=== PATIENT | male | born 2000 | race Caucasian/White ===

== ENCOUNTER 2019-11-15 14:30 | Emergency (ER) | payer SELFPAY ==
[2019-11-15 14:48] VITALS: BP 151/85; PULSE 87; RESP 15; TEMP 36.8; O2SAT 98; BMI 43.7
--- NOTE | 2019-11-15 14:51 | DI.RAD.S_ITS ---
PROCEDURE: XR FINGER LT MIN 2V INDICATIONS: Pt jammed finger with swelling and pain TECHNIQUE: AP hand, 2 views of the small finger(s) acquired. COMPARISON: None. FINDINGS: Bones: Oblique, displaced fracture of the distal shaft of the proximal phalanx of the fifth finger extending to the lateral edge of the fifth PIP joint. No dislocations. No suspicious bony lesions. Soft tissues: No suspicious soft tissue calcifications. IMPRESSION: Fifth finger proximal phalanx fracture as described above. Dictated by: Alexis Barrera M.D. on 11/15/2019 at 14:22 Approved by: Alexis Barrera M.D. on 11/15/2019 at 14:23
[2019-11-15] MEDS: ACETAMINOPHEN 325 MG TABLET 975 MG PO (15:34)
[2019-11-15] MEDS: IBUPROFEN 400 MG TABLET 800 MG PO (15:34)
[2019-11-15 16:21] VITALS: BP 139/72; PULSE 79; RESP 18; O2SAT 99
--- NOTE | 2019-11-15 18:52 | ED_ITS ---
HPI - Extremity Injury (Upper) <BE Hung - Last Filed: 11/15/19 18:56> General Chief Complaint: Extremity Injury, Upper Stated Complaint: Potential left pinky fracture Time Seen by Provider: 11/15/19 15:09 Source: patient Mode of arrival: Family Vehicle Limitations: no limitations History of Present Illness HPI narrative: The patient is a 19-year-old male current smoker who denies pertinent medical history presents with a chief complaint of a left finger pain. He states he jammed his left finger on a football while playing it yesterday. Now he complains of swelling and decreased range of motion. He has taken marijuana for the pain. He denies any previous injuries to that hand. He is right-hand dominant Related Data Allergies Allergy/AdvReac Type Severity Reaction Status Date / Time No Known Drug Allergies Allergy Verified 11/15/19 14:48 Review of Systems <BE Hung - Last Filed: 11/15/19 18:56> Review of Systems Narrative: GENERAL: Denies chills, fatigue, malaise, fever, sweats. HEENT: Denies sinus pain, ear pain, sore throat, difficulty swallowing, dizziness. RESPIRATORY: Denies dyspnea, cough, wheezing, hemoptysis, sputum. CARDIOVASCULAR: Denies chest pain, palpitations, orthopnea, edema, GASTROINTESTINAL: Denies nausea, vomiting, abdominal pain, diarrhea, constipation, melena. : Denies dysuria, frequency, incontinence, hematuria, urinary retention. MUSCULOSKELETAL: See HPI SKIN: Denies rash, skin lesions, or other NEUROLOGIC: Denies weakness, headache, numbness, change in speech, confusion, seizures, incoordination. PSYCHIATRIC: No concerning psychosocial issues. 12 point review of systems is negative except for those stated above Patient History <BE Hung - Last Filed: 11/15/19 18:56> alcohol intake frequency: a few times a week Substance Use Type: marijuana Exam <BE Hung Last Filed: 11/15/19 18:56> Narrative Exam Narrative: GENERAL: Obese male in no acute distress HEAD: Atraumatic. Normocephalic. No temporal or scalp tenderness. EYES: Pupils equal round and reactive. Extraocular motions intact. No scleral icterus. No injection or drainage. ENT: Nose without bleeding, purulent drainage or septal hematoma.. Airway patent. NECK: Trachea midline. No JVD or lymphadenopathy. Supple, nontender, no meningeal signs. CARDIOVASCULAR: Regular rate and rhyth RESPIRATORY: No cough. No increased respiratory effort. No accessory muscle use EXTREMITIES: Swelling noted over left 5th digit. Decreased flexion and extension, though is able to flex and extend against resistance. Cap refill less than 2 seconds left 5th digit positive radial pulse. BACK: Nontender without deformity or crepitance. No flank tenderness. NEURO: AOx3. SKIN: See extremity exam. Ecchymosis noted left 5th digit. Initial Vital Signs Initial Vital Signs: Vital Signs Temperature 98.2 F 11/15/19 14:48 Pulse Rate 87 11/15/19 14:48 Respiratory Rate 15 11/15/19 14:48 Blood Pressure 151/85 H 11/15/19 14:48 Pulse Oximetry 98 11/15/19 14:48 <Arnold Matute MD - Last Filed: 11/16/19 19:46> Initial Vital Signs Initial Vital Signs: Vital Signs Temperature 98.2 F 11/15/19 14:48 Pulse Rate 87 11/15/19 14:48 Respiratory Rate 15 11/15/19 14:48 Blood Pressure 151/85 H 11/15/19 14:48 Pulse Oximetry 98 11/15/19 14:48 Procedures <BE Hung - Last Filed: 11/15/19 18:56> Orthopedic Splinting/Casting Injury #1: Side: left Upper Extremity Injury Location: finger Upper Extremity Immobilizer: finger (other) and Reji wrap Post splinting neuro exam: intact Post splinting vascular exam: intact Placed by: Nursing Course <BE Hung - Last Filed: 11/15/19 18:56> Orders Ordered: Discontinued Medications Acetaminophen (Tylenol) 975 mg PO NOW ONE Stop: 11/15/19 15:30 Last Admin: 11/15/19 15:34 Dose: 975 mg Documented by: MAHSA Ibuprofen (Advil) 800 mg PO NOW ONE Stop: 11/15/19 15:30 Last Admin: 11/15/19 15:34 Dose: 800 mg Documented by: MAHSA Vital Signs Vital signs: Vital Signs - 8 hr 11/15/19 14:48 11/15/19 16:21 Temperature 98.2 F Pulse Rate 87 79 Respiratory Rate 15 18 Blood Pressure 151/85 H 139/72 Pulse Oximetry 98 99 <Arnold Matute MD - Last Filed: 11/16/19 19:46> Orders Ordered: Discontinued Medications Acetaminophen (Tylenol) 975 mg PO NOW ONE Stop: 11/15/19 15:30 Last Admin: 11/15/19 15:34 Dose: 975 mg Documented by: MAHSA Ibuprofen (Advil) 800 mg PO NOW ONE Stop: 11/15/19 15:30 Last Admin: 11/15/19 15:34 Dose: 800 mg Documented by: MAHSA Vital Signs Vital signs: Vital Signs - 8 hr 11/15/19 14:48 11/15/19 16:21 Temperature 98.2 F Pulse Rate 87 79 Respiratory Rate 15 18 Blood Pressure 151/85 H 139/72 Pulse Oximetry 98 99 MDM - Extremity Injury (Upper) <BE Hung - Last Filed: 11/15/19 18:56> Imaging Data Extremity x-ray #1: Radiologist's Impression: [address] [place] [id number] XRay Report Signed Patient: Austin Villeda RMR#: [id number] : 2000Acct:[id number] Age/Sex: 19 MDate of Service: 11/15/19 Loc: ED Accession Number: [id number] Procedure: XR finger LT min 2V Ordering Provider: Arnold Matute MD PROCEDURE: XR FINGER LT MIN 2V INDICATIONS: Pt jammed finger with swelling and pain TECHNIQUE: AP hand, 2 views of the small finger(s) acquired. COMPARISON: None. FINDINGS: Bones: Oblique, displaced fracture of the distal shaft of the proximal phalanx of the fifth finger extending to the lateral edge of the fifth PIP joint. No dislocations. No suspicious bony lesions. Soft tissues: No suspicious soft tissue calcifications. IMPRESSION: Fifth finger proximal phalanx fracture as described above. Dictated by: Alexis Barrera M.D. on 11/15/2019 at 14:22 Approved by: Alexis Barrera M.D. on 11/15/2019 at 14:23 [facility] Narrative Medical decision making narrative: The patient is a 19-year-old male who presents with a chief complaint of left 5th digit pain. He has a fracture on x- ray. He is neurovascularly intact throughout stay in the emergency department. He is placed in a splint as per procedural note. I discussed at length rest ice compression elevation as well as [id number] pain medications as needed and able. The patient denies pain in the emergency department and states that Tylenol/Motrin to take care for pain. I encouraged follow-up with primary care provider, coming back to the emergency department for any acute concerns such as circulation concerns. Patient has no questions or concerns upon discharge and states understanding of return precautions as well as follow-up care. Discharge Plan Departure Patient Disposition: Home Clinical Impression: Finger fracture Qualifiers: Encounter type: initial encounter Finger: little finger Fracture type: closed Phalanx: proximal Fracture alignment: displaced Laterality: left Qualified Code(s): S62.617A - Displaced fracture of proximal phalanx of left little finger, initial encounter for closed fracture Discharge Date/Time: 11/15/19 16:51 Instructions: DI for Finger Fracture, How To Perform RICE (Rest, Ice, Compress, Elevate), How to Take Care of Your Splint Activity Restrictions/Additional Instructions: Thank you for trusting us with your care today As I discussed, you have a fractured 5th finger. We have splinted it for you. Please use rest ice compression elevation as well as [id number] pain medications as needed and able. Please back to emergency department for any acute concerns. Please follow-up with primary care provider. I have given you contact information to your old PCP as well as the [facility] human resources analyst, who can help you identify new one. I also given contact information to [facility] Please come back to emergency department for any acute concerns Referrals: [facility] [Provider Group] [facility] [Outside] Yamil Kohler MD [Family Provider] - Stand Alone Forms: Work Release Note
== END 2019-11-15 16:51 | disposition home or self-care (01) ==
PROVIDERS: Emergency Provider Nurse Practitioner Family; Family Provider Family Medicine
DX: S62.617A Displaced fracture of proximal phalanx of left little finger, initial encounter for closed fracture (principal); W21.01XA Struck by football, initial encounter
CPT/HCPCS: 29130; 73140; 99283

== ENCOUNTER 2020-05-10 22:39 | Emergency (ER) | payer OTHER, SELFPAY ==
[2020-05-10 22:45] VITALS: BP 146/78; PULSE 102; RESP 16; TEMP 37.4; O2SAT 98; BMI 42.3
--- NOTE | 2020-05-10 23:47 | ED_ITS ---
HPI - General Adult General Chief complaint: Upper Respiratory Symptoms Stated complaint: thinks strep throat Time Seen by Provider: 05/10/20 22:45 Source: patient Mode of arrival: Ambulatory Limitations: no limitations History of Present Illness HPI narrative: Patient is a 19-year-old male who was recently exposed to an individual who has strep throat who is here for evaluation of approximately 24- 36 hours of a sore throat. Patient states that he thinks he has strep. Related Data Allergies Allergy/AdvReac Type Severity Reaction Status Date / Time No Known Drug Allergies Allergy Verified 11/15/19 14:48 Review of Systems Constitutional Constitutional: Denies fever(s) ENT Ears, Nose, Mouth, and Throat: Reports sore throat Cardiovascular Cardiovascular: Denies chest pain Respiratory Respiratory: Denies cough Integumentary/Breasts Skin/Breast: Denies lesions and Denies rash Hematologic/Lymphatic Hematologic/Lymphatic: Denies easy bleeding and Denies easy bruising Patient History Medical History Patient denies medical problems alcohol intake frequency: a few times a week Substance Use Type: marijuana Exam Initial Vital Signs Initial Vital Signs: Vital Signs Temperature 99.3 F 05/10/20 22:45 Pulse Rate 102 H 05/10/20 22:45 Respiratory Rate 16 05/10/20 22:45 Blood Pressure 146/78 H 05/10/20 22:45 Pulse Oximetry 98 05/10/20 22:45 Const General: cooperative and comfortable HENMT Mouth: oral mucosae normal Throat: posterior oropharynx abnormal erythema and exudates Resp Effort & Inspection: normal respiratory effort Skin Lesions: no lesions Rashes: no rashes Neuro General: patient alert, patient awake and patient oriented x3 Course Orders Ordered: Discontinued Medications Penicillin G Benzathine (Penicillin G Benzathine 1,200,000 Unit/2 Ml Syringe) 1,200,000 unit IM NOW ONE Stop: 05/10/20 23:48 Last Admin: 05/10/20 23:54 Dose: 1,200,000 unit Documented by: MURPHY Vital Signs Vital signs: Vital Signs - 8 hr 05/10/20 22:45 Temperature 99.3 F Pulse Rate 102 H Respiratory Rate 16 Blood Pressure 146/78 H Pulse Oximetry 98 Medical Decision Making Lab Data Lab results reviewed: Yes I reviewed the patient's lab results. Labs: Point of Care Testing Rapid Strep A Positive Point of care testing: Point of Care Testing Rapid Strep A Positive MDM Narrative Medical decision making narrative: Rapid strep is positive. Discussed treatment options to include IM Bicillin versus oral antibiotics and the patient opted for a shot. There are no signs of peritonsillar/retropharyngeal abscess. Patient was given return precautions. He expressed understanding and agreement. Discharge Plan Departure Patient Disposition: Home Clinical Impression: Acute streptococcal pharyngitis Instructions: DI for Strep Throat Activity Restrictions/Additional Instructions: You can take Tylenol for any fevers. Be sure to increase your fluid intake return to the emergency department for any new or worsening symptoms
[2020-05-10] MEDS: PENICILLIN G BENZATHINE 1,200,000 UNIT/2 ML SYRINGE 1200000 UNIT IM (23:54)
== END 2020-05-11 00:02 | disposition home or self-care (01) ==
PROVIDERS: Emergency Provider Emergency Medicine; Family Provider Family Medicine
DX: J02.0 Streptococcal pharyngitis (principal)
CPT/HCPCS: 87880; 96372; 99281; 99283; J0561

== ENCOUNTER 2020-09-11 12:28 | Emergency (ER) | payer OTHER, SELFPAY ==
[2020-09-11 12:41] VITALS: BP 144/83; PULSE 85; RESP 18; TEMP 37.2; O2SAT 98; BMI 38.9
--- NOTE | 2020-09-11 14:04 | ED_ITS ---
HPI - Dental/Oral General Chief complaint: Dental/Oral Stated complaint: tooth pain Time Seen by Provider: 09/11/20 14:03 Source: patient Mode of arrival: Ambulatory Limitations: no limitations History of Present Illness HPI Narrative: This is a 20-year-old male comes with the complaint of pain in his number #14. Patient states that he cracked his tooth a while ago and states that he did really have any pain. Today he was eating sunflower seeds when he had sudden pain at the tooth itself which was significant. He has had some improvement after some Orajel locally. Patient has not appreciated any issues until today. He is not appreciate any swelling or new skin changes. No drainage. Patient states he has otherwise been healthy. He has not been following regularly with a dentist since he was about 9. Patient denies any allergies to medications. Does not take any medications regularly. He is accompanied by family. Related Data Previous Rx's Medication Instructions Recorded meloxicam [Mobic] 7.5 mg PO BID #20 tab 09/11/20 Allergies Allergy/AdvReac Type Severity Reaction Status Date / Time No Known Drug Allergies Allergy Verified 11/15/19 14:48 Review of Systems Review of Systems ROS Unobtainable: All systems reviewed & are unremarkable except as noted in HPI and below Patient History Medical History Patient denies medical problems alcohol intake frequency: a few times a week Substance Use Type: marijuana Exam Narrative Exam Narrative: GEN: well nourished, well appearing male, alert and oriented x 3, patient appears to be in mild distress. HEENT: Atraumatic, pupils are equal round reactive to light, extraocular movements are intact, nares are clear. Throat is clear without any exudates, erythema, tonsillar enlargement or uvular deviation. Patient has fracture of the 14. Tooth there is some exposure of the soft tissue. There is no erythema, drainage or other skin changes appreciated. No swelling of the face or soft tissue of the cheek. No purulent drainage. HEART: Regular rate and rhythm without murmur, clicks, rubs. LUNGS:Lungs clear to auscultation, no wheezes, rales, crackles, chest moves symmetrically ABD:bowel sounds normal, soft, non-tender, no guarding, rebound, rigidity, no masses noted, no hepatosplenomegaly MSCL: full range of motion NEURO:CN 2-12 intact, sensation normal SKIN: No rash, skin changes appreciated. Initial Vital Signs Initial Vital Signs: Vital Signs Temperature 98.9 F 09/11/20 12:41 Pulse Rate 85 09/11/20 12:41 Respiratory Rate 18 09/11/20 12:41 Blood Pressure 144/83 H 09/11/20 12:41 Pulse Oximetry 98 09/11/20 12:41 Course Orders Ordered: Discontinued Medications Ketorolac Tromethamine (Ketorolac 30 Mg/Ml Vial) 60 mg IM NOW ONE Stop: 09/11/20 14:35 Last Admin: 09/11/20 14:44 Dose: 60 mg Documented by: DECLAN Vital Signs Vital signs: Vital Signs - 8 hr 09/11/20 12:41 Temperature 98.9 F Pulse Rate 85 Respiratory Rate 18 Blood Pressure 144/83 H Pulse Oximetry 98 Discharge Plan Departure Patient Disposition: Home Clinical Impression: Fracture of tooth Instructions: Tooth Fracture Activity Restrictions/Additional Instructions: Followup with a dentist for recheck. One option is [facility] dental clinic if you cannot find a dentist. Take pain medication as prescribed, may take 1 tablet every 12 hours. You may also take Tylenol up to a 1000 mg every 8 hours with this medication. Prescription to [facility] in [place]. Please return for fevers, new or worsening pain, swelling of the gums or skin, swelling, redness of the face, swelling of the airway, tongue or any purulent drainage or other new or concerning symptoms. Prescriptions: New meloxicam [Mobic] 7.5 mg tablet 7.5 mg PO BID Qty: 20 RF: 0
[2020-09-11] MEDS: KETOROLAC 30 MG/ML VIAL 60 MG IM (14:44)
== END 2020-09-11 14:54 | disposition home or self-care (01) ==
PROVIDERS: Emergency Provider Emergency Medicine; Family Provider Family Medicine
DX: S02.5XXA Fracture of tooth (traumatic), initial encounter for closed fracture (principal)
CPT/HCPCS: 96372; 99283; J1885

== ENCOUNTER 2021-10-04 03:26 | Emergency (ER) | payer SELFPAY ==
[2021-10-04 03:31] VITALS: BP 150/83; PULSE 103; RESP 18; TEMP 36.6; O2SAT 96
--- NOTE | 2021-10-04 03:34 | DI.RAD.S_ITS ---
PROCEDURE: XR KNEE LT 3V INDICATIONS: pain,slight swelling,not acute TECHNIQUE: 3 views of the knee were acquired. COMPARISON: None. FINDINGS: Bones: No fractures or dislocations. No suspicious bony lesions. Soft tissues: No joint effusion. No suspicious soft tissue calcifications. IMPRESSION: No fracture. No osseous lesion. If symptoms and/or clinical suspicion for pathology persists, further assessment with repeat radiographs (7-10 days) or advanced imaging (e.g. CT, MRI or bone scan) should be considered. Dictated by: Radha Butler MD, PhD on 10/04/2021 at 9:12 Approved by: Radha Butler MD, PhD on 10/04/2021 at 9:12
--- NOTE | 2021-10-04 03:49 | ED.EXTPRO ---
HPI - Extremity Problem General Chief complaint: Extremity Problem,Nontraumatic Stated complaint: left knee pain Time Seen by Provider: 10/04/21 03:31 Source: patient Mode of arrival: Ambulatory History of Present Illness HPI Narrative: 21-year-old male nonsmoker with history of a prior knee injury presents with his father and a chief complaint of increasing pain in his left knee over the past few days. He states that a few days ago he was walking and he thinks he twisted it and he has had increasing pain since then. His pain is worse when he bends it. He denies any numbness, tingling or weakness. He denies any abnormal proprioception. He has no discomfort in his hip or ankle. Again, he denies any traumatic injury and did not fall. He has had no fever or chills. He states he had an injury years ago but did not have a properly treated and is concerned that perhaps he could have reaggravated it. Related Data Previous Rx's Medication Instructions Recorded meloxicam 7.5 mg tablet (Mobic) 7.5 mg PO BID #20 tab 09/11/20 ketorolac 10 mg tablet 10 mg PO Q6H PRN #14 tab 10/04/21 Allergies Allergy/AdvReac Type Severity Reaction Status Date / Time No Known Drug Allergies Allergy Verified 11/15/19 14:48 Review of Systems Review of Systems Narrative: GENERAL: Denies chills, fatigue, malaise, fever, sweats. HEENT: Denies sinus pain, ear pain, sore throat, difficulty swallowing, dizziness. RESPIRATORY: Denies dyspnea, cough, wheezing, hemoptysis, sputum. CARDIOVASCULAR: Denies chest pain, palpitations, orthopnea, edema, GASTROINTESTINAL: Denies nausea, vomiting, abdominal pain, diarrhea, constipation, melena. : Denies dysuria, frequency, incontinence, hematuria, urinary retention. MUSCULOSKELETAL: See HPI SKIN: Denies rash, skin lesions, or other NEUROLOGIC: Denies weakness, headache, numbness, change in speech, confusion, seizures, incoordination. PSYCHIATRIC: No concerning psychosocial issues. 12 point review of systems is negative except for those stated above Patient History Medical History Patient denies medical problems alcohol intake frequency: a few times a week Substance Use Type: marijuana Exam Narrative Exam Narrative: GEN: AOx3 and in mild distress EYES: Pupils are equal, round, and reactive to light and accommodation. Extraoccular muscles are intact bilaterally. There is no subconjunctival hemorrhage or exudate. CHEST: Lungs are clear to auscultation bilaterally and free of wheezes, rales, or rhonchi. Heart rate is regular rhythm, there are no murmurs, clicks, rubs, or gallops. There is no chest wall tenderness. ABD: Abdomen is soft and nontender. There is no guarding or rebound. Bowel sounds are normal in all 4 quadrants. There is no mass or organomegaly. EXT: Full, painless range of motion of left knee without obvious swelling, erythema or warmth. There is no reproducible joint line tenderness and no obvious ligamentous instability. SKIN: Warm, pink, and dry. No erythema or rash Initial Vital Signs Initial Vital Signs: Vital Signs Temperature 98 F 10/04/21 03:31 Pulse Rate 103 H 10/04/21 03:31 Respiratory Rate 18 10/04/21 03:31 Blood Pressure 150/83 H 10/04/21 03:31 Pulse Oximetry 96 10/04/21 03:31 Course Orders Ordered: ED Orders 10/04/21 03:34 XR knee LT 3V Stat Vital Signs Vital signs: Vital Signs - 8 hr 10/04/21 03:31 Temperature 98 F Pulse Rate 103 H Respiratory Rate 18 Blood Pressure 150/83 H Pulse Oximetry 96 Discharge Plan Departure Patient Disposition: Home Clinical Impression: Left knee sprain Instructions: DI for Knee Sprain Activity Restrictions/Additional Instructions: *You have been diagnosed with [Acute Left Knee Sprain ] your history and physical exam are reassuring and x-ray demonstrates no obvious fracture or dislocation. *What to do: *Please continue to take your regular medications as directed. [x ] New medication prescriptions sent to your pharmacy: [ [facility]] [ ] New medication written as a paper prescription *Please follow up with your primary care doctor in 2-3 days, call for an appointment. Let them know you were seen in the Emergency Department and that we ask that you be seen in follow up. We will electronically transmit a record of today's note if your PCP is in our system *Return to Emergency Department if you should have any new, worsening or concerning symptoms, such as [worsening pain, significant swelling, cold extremities, numbness, tingling, weakness or other bothersome symptoms Radiographic study has been interpreted by an emergency physician. The official diagnosis by radiology will be performed within the next 24 hours and should there be any change in outcome we will notify you of how to proceed. Prescriptions: New ketorolac 10 mg tablet 10 mg PO Q6H PRN (Reason: pain) Qty: 14 0RF No Action meloxicam [Mobic] 7.5 mg tablet 7.5 mg PO BID Qty: 20 0RF
[2021-10-04] MEDS: IBUPROFEN 400 MG TABLET 800 MG PO (04:47)
== END 2021-10-04 04:53 | disposition home or self-care (01) ==
PROVIDERS: Emergency Provider Emergency Medicine; Family Provider Family Medicine
DX: S83.92XA Sprain of unspecified site of left knee, initial encounter (principal)
CPT/HCPCS: 73562; 99283

== ENCOUNTER 2024-06-10 05:16 | Emergency (ER) | payer SELFPAY ==
[2024-06-10 05:22] VITALS: BP 125/73; PULSE 117; RESP 18; TEMP 36.9; O2SAT 97; BMI 41.3
[2024-06-10 06:28] LABS: Add Manual Diff / Slide Review NO; Basophils Absolute Auto 0 /uL (0-100); Basophils Percent Auto 0.1 % (0-2); Eosinophils Absolute Auto 100 /uL (0-450); Eosinophils Percent Auto 0.3 % (2-4); Hematocrit 50.2 % (41-53); Hemoglobin 16.7 g/dL (13.5-17.5); Lymphocytes Absolute Auto 400 /uL (1100-4500); Lymphocytes Percent Auto 1.8 % (25-40); Mean Corpuscular HGB Conc 33.3 % (30-36); Mean Corpuscular Hemoglobin 29.5 PG (26-34); Mean Corpuscular Volume 88.4 fL (80-100); Monocytes Absolute Auto 1200 /uL (0-900); Monocytes Percent Auto 5.1 % (3-14); Neutrophils Absolute Auto 21700 /uL (1500-7000); Neutrophils Percent Auto 92.7 % (50-75); Platelet Count 435 X10^3/uL (150-400); Red Blood Cell Count 5.68 X10^6/uL (4.5-5.9); Red Cell Distribution Width 13.4 % (11.6-14.8); White Blood Cell Count 23.4 X10^3/uL (4.5-11.0)
[2024-06-10 06:44] LABS: Alanine Aminotransferase 83 IU/L (<50); Albumin 5.3 g/dL (3.5-5.0); Albumin Globulin Ratio 1.2 (1.0-2.8); Alkaline Phosphatase 78 U/L (38-126); Aspartate Aminotransferase 42 IU/L (17-59); BUN Creatinine Ratio 21.6 (6-22); Bilirubin Total 1.5 mg/dL (0.2-1.3); Blood Urea Nitrogen 19 mg/dL (9-20); Calcium 9.6 mg/dL (8.4-10.2); Carbon Dioxide 19 mmol/L (22-32); Chloride 104 mmol/L (98-107); Estimated Glomerular Filt Rate > 60 mL/min (>60); Globulin 4.6 g/dL (1.7-4.1); Glucose 183 mg/dL (70-100); HEMOLYSIS < 15 (0-50); Potassium 4.6 mmol/L (3.4-5.1); Sodium 139 mmol/L (137-145); Total Protein 9.9 g/dL (6.3-8.2)
--- NOTE | 2024-06-10 06:46 | ED.GENADULT ---
HPI - General Adult <Luis Alberto Mills MD - Last Filed: 06/10/24 11:12> General Chief complaint: Abdominal Pain Stated complaint: food poisoning Time Seen by Provider: 06/10/24 05:50 Source: patient Mode of arrival: Ambulatory History of Present Illness HPI narrative: 23-year-old male with multiple episodes nonbloody emesis and loose stools since yesterday, perhaps 10 loose stools and perhaps 10 episodes of emesis, with crampy abdominal pain. No fever. Denies recent cough or shortness of breath. Denies painful urination or frequency of urination. No recent antibiotic exposure. He has not been traveling or camping. He has not having any close contacts to persons with similar GI symptoms. Related Data Previous Rx's Medication Instructions Recorded ondansetron 4 mg disintegrating 4 mg PO Q8H PRN nausea and 06/10/24 tablet vomiting #10 tabs Allergies Allergy/AdvReac Type Severity Reaction Status Date / Time No Known Drug Allergies Allergy Verified 11/15/19 14:48 Patient History <Luis Alberto Mills MD - Last Filed: 06/10/24 11:12> Medical History Patient denies medical problems Social History Smoking Status: Never smoker Smoking Status: Never smoker alcohol intake frequency: a few times a week Exam <Luis Alberto Mills MD - Last Filed: 06/10/24 11:12> Narrative Exam Narrative: GENERAL: Well-developed patient, in mild distress. HEAD: Atraumatic. Normocephalic. EYES: Pupils equal round and reactive. Extraocular motions intact. No scleral icterus. No injection or drainage. ENT: Nose without bleeding, purulent drainage. Throat without erythema, tonsillar hypertrophy or exudate. Airway patent. NECK: Trachea midline. Non tender CARDIOVASCULAR: Regular rate and rhythm without murmurs, gallops, or rubs. RESPIRATORY: Clear to auscultation. Breath sounds equal bilaterally. No wheezes, rales, or rhonchi. GASTROINTESTINAL: Abdomen soft, non-tender, nondistended. EXTREMITIES: No edema or joint tenderness. BACK: Nontender without deformity or crepitance. No flank tenderness. NEURO: AOx3. Motor functions grossly nonfocal SKIN: No rash or erythema of visible areas Initial Vital Signs Initial Vital Signs: Vital Signs Temperature 98.4 F 06/10/24 05:22 Pulse Rate 117 H 06/10/24 05:22 Respiratory Rate 18 06/10/24 05:22 Blood Pressure 125/73 06/10/24 05:22 Pulse Oximetry 97 06/10/24 05:22 Oxygen Delivery Method Room Air 06/10/24 05:22 <Tavia Troy DO - Last Filed: 06/10/24 13:46> Initial Vital Signs Initial Vital Signs: Vital Signs Temperature 98.4 F 06/10/24 05:22 Pulse Rate 117 H 06/10/24 05:22 Respiratory Rate 18 06/10/24 05:22 Blood Pressure 125/73 06/10/24 05:22 Pulse Oximetry 97 06/10/24 05:22 Oxygen Delivery Method Room Air 06/10/24 05:22 Course <Luis Alberto Mills MD - Last Filed: 06/10/24 11:12> Orders Ordered: ED Orders 06/10/24 06:18 CBC Auto Diff [Complete Blood Count AUTO DIFF] Stat CMP [Comprehensive Metabolic Panel] Stat Lactate (Lactic Acid) Stat Lipase Stat 06/10/24 07:16 Blood Culture Stat 06/10/24 07:33 CT abdomen pelvis w con Stat Discontinued Medications Sodium Chloride (Normal Saline 0.9%) 1,000 mls @ 1,000 mls/hr IV BOLUS ONE Stop: 06/10/24 07:56 Last Infusion: 06/10/24 08:11 Dose: Infused Documented By: Admin: 06/10/24 07:05 Dose: 1,000 mls/hr Documented By: CHEL Ondansetron HCl (Ondansetron 4 Mg/2 Ml Inj) 4 mg IV NOW ONE Stop: 06/10/24 06:58 Last Admin: 06/10/24 07:05 Dose: 4 mg Documented By: CHEL Vital Signs Vital signs: Vital Signs - 8 hr 06/10/24 07:44 06/10/24 08:05 06/10/24 08:13 Temperature Pulse Rate 101 H 93 H Respiratory Rate 18 Blood Pressure 143/81 H 131/77 Pulse Oximetry 98 96 Oxygen Delivery Method Room Air 06/10/24 08:13 06/10/24 08:45 Temperature 98.6 F Pulse Rate 102 H 100 H Respiratory Rate 20 Blood Pressure 131/77 Pulse Oximetry 97 98 Oxygen Delivery Method Room Air <Tavia Troy DO - Last Filed: 06/10/24 13:46> Orders Ordered: ED Orders 06/10/24 06:18 CBC Auto Diff [Complete Blood Count AUTO DIFF] Stat CMP [Comprehensive Metabolic Panel] Stat Lactate (Lactic Acid) Stat Lipase Stat 06/10/24 07:16 Blood Culture Stat 06/10/24 07:33 CT abdomen pelvis w con Stat Discontinued Medications Sodium Chloride (Normal Saline 0.9%) 1,000 mls @ 1,000 mls/hr IV BOLUS ONE Stop: 06/10/24 07:56 Last Infusion: 06/10/24 08:11 Dose: Infused Documented By: Admin: 06/10/24 07:05 Dose: 1,000 mls/hr Documented By: CHEL Ondansetron HCl (Ondansetron 4 Mg/2 Ml Inj) 4 mg IV NOW ONE Stop: 06/10/24 06:58 Last Admin: 06/10/24 07:05 Dose: 4 mg Documented By: CHEL Vital Signs Vital signs: Vital Signs - 8 hr 06/10/24 07:44 06/10/24 08:05 06/10/24 08:13 Temperature Pulse Rate 101 H 93 H Respiratory Rate 18 Blood Pressure 143/81 H 131/77 Pulse Oximetry 98 96 Oxygen Delivery Method Room Air 06/10/24 08:13 06/10/24 08:45 Temperature 98.6 F Pulse Rate 102 H 100 H Respiratory Rate 20 Blood Pressure 131/77 Pulse Oximetry 97 98 Oxygen Delivery Method Room Air Medical Decision Making <Luis Alberto Mills MD - Last Filed: 06/10/24 11:12> Lab Data Lab results reviewed: Yes I reviewed the patient's lab results. Lab results narrative: White blood cell count 98619, hemoglobin 16.7, platelets [id number]. Serum CO2 19, BUN creatinine normal. Electrolytes unremarkable. Glucose 183. Slight ALT and T bili elevation, otherwise normal. Lipase normal. 06/10/24 06:18 06/10/24 06:18 Labs: Lab Results 06/10/24 Range/Units 06:18 WBC 23.4 H (4.5-11.0) X10^3/uL RBC 5.68 (4.5-5.9) X10^6/uL Hgb 16.7 (13.5-17.5) g/dL Hct 50.2 (41-53) % MCV 88.4 (80-100) fL MCH 29.5 (26-34) PG MCHC 33.3 (30-36) % RDW 13.4 (11.6-14.8) % Plt Count 435 H (150-400) X10^3/uL Neut % (Auto) 92.7 H (50-75) % Lymph % (Auto) 1.8 L (25-40) % [place] % (Auto) 5.1 (3-14) % Eos % (Auto) 0.3 L (2-4) % Baso % (Auto) 0.1 (0-2) % Neut # (Auto) 22815 H (4452-4619) /uL Lymph # (Auto) 400 L (1143-3242) /uL [place] # (Auto) 1200 H (0-900) /uL Eos # (Auto) 100 (0-450) /uL Baso # (Auto) 0 (0-100) /uL Sodium 139 (137-145) mmol/L Potassium 4.6 (3.4-5.1) mmol/L Chloride 104 (98-107) mmol/L Carbon Dioxide 19 L (22-32) mmol/L BUN 19 (9-20) mg/dL Creatinine 0.88 (0.66-1.25) mg/dL Estimated GFR > 60 (>60) mL/min BUN/Creatinine Ratio 21.6 (6-22) Glucose 183 H (70-100) mg/dL Lactate 2.0 (0.7-2.1) mmol/L Calcium 9.6 (8.4-10.2) mg/dL Total Bilirubin 1.5 H (0.2-1.3) mg/dL AST 42 (17-59) IU/L ALT 83 H (<50) IU/L Alkaline Phosphatase 78 (38-126) U/L Total Protein 9.9 H (6.3-8.2) g/dL Albumin 5.3 H (3.5-5.0) g/dL Globulin 4.6 H (1.7-4.1) g/dL Albumin/Globulin Ratio 1.2 (1.0-2.8) Lipase 48 (23-300) U/L [facility] Narrative Medical decision making narrative: 23-year-old male with multiple episodes nausea and vomiting, crampy abdominal pain, afebrile, SIRS screen negative. White blood cell count [id number] noted, lactate added, IV fluid bolus initiated. Labs including stool studies requested. Patient with leukocytosis and abdominal discomfort, CT abdomen and pelvis ordered, patient agreeable to this plan. 0715, CT pending still to be performed, signed out to Dr. Troy. <Tavia Troy, - Last Filed: 06/10/24 13:46> Lab Data Labs: Lab Results 06/10/24 Range/Units 06:18 WBC 23.4 H (4.5-11.0) X10^3/uL RBC 5.68 (4.5-5.9) X10^6/uL Hgb 16.7 (13.5-17.5) g/dL Hct 50.2 (41-53) % MCV 88.4 (80-100) fL MCH 29.5 (26-34) PG MCHC 33.3 (30-36) % RDW 13.4 (11.6-14.8) % Plt Count 435 H (150-400) X10^3/uL Neut % (Auto) 92.7 H (50-75) % Lymph % (Auto) 1.8 L (25-40) % [place] % (Auto) 5.1 (3-14) % Eos % (Auto) 0.3 L (2-4) % Baso % (Auto) 0.1 (0-2) % Neut # (Auto) 96451 H (7721-1285) /uL Lymph # (Auto) 400 L (5048-8049) /uL [place] # (Auto) 1200 H (0-900) /uL Eos # (Auto) 100 (0-450) /uL Baso # (Auto) 0 (0-100) /uL Sodium 139 (137-145) mmol/L Potassium 4.6 (3.4-5.1) mmol/L Chloride 104 (98-107) mmol/L Carbon Dioxide 19 L (22-32) mmol/L BUN 19 (9-20) mg/dL Creatinine 0.88 (0.66-1.25) mg/dL Estimated GFR > 60 (>60) mL/min BUN/Creatinine Ratio 21.6 (6-22) Glucose 183 H (70-100) mg/dL Lactate 2.0 (0.7-2.1) mmol/L Calcium 9.6 (8.4-10.2) mg/dL Total Bilirubin 1.5 H (0.2-1.3) mg/dL AST 42 (17-59) IU/L ALT 83 H (<50) IU/L Alkaline Phosphatase 78 (38-126) U/L Total Protein 9.9 H (6.3-8.2) g/dL Albumin 5.3 H (3.5-5.0) g/dL Globulin 4.6 H (1.7-4.1) g/dL Albumin/Globulin Ratio 1.2 (1.0-2.8) Lipase 48 (23-300) U/L Imaging Data CT scan - abdomen/pelvis: Radiologist's Impression: PROCEDURE: CT ABDOMEN PELVIS W CON INDICATIONS: Abdominal pain, vomiting, high white count TECHNIQUE: After the administration of intravenous contrast, axial sections acquired from the lung bases to the pubic symphysis. Coronal and sagittal reformats were performed. For radiation dose reduction, the following was used: automated exposure control, adjustment of mA and/or kV according to patient size. COMPARISON: None. FINDINGS: Image quality: Diagnostic. Lower Chest: No significant findings. ABDOMEN: Liver: No solid mass. Moderate hepatic steatosis is seen. Gallbladder: No radiopaque gallstones or wall thickening. Biliary ducts: No biliary dilation. Pancreas: No ductal dilation. Spleen: There is splenomegaly. Spleen measures 15.5 cm in length. Possible small cyst is seen in posterior aspect of spleen measures 4 millimeter in size. Adrenal Glands: No adrenal nodules. Kidneys and Ureters: No hydronephrosis. No solid mass. No complex renal cystic lesion which requires follow up. Stomach and Bowel: There is no bowel obstruction. No abnormal bowel wall thickening or mesenteric fat stranding. No abscess collection. Appendix is visualized in right lower quadrant and is within normal limits. Peritoneum: No abnormal intraperitoneal fluid. No free air. Ventral Wall: No significant ventral hernia. Abdominal Nodes: No retroperitoneal or mesenteric adenopathy by size criteria. Vessels: Aorta and inferior vena cava are normal in size. PELVIS: Pelvic Organs: Unremarkable. Bladder: No bladder wall thickening, accounting for underdistention. Pelvic Nodes: No enlarged lymph nodes. Miscellaneous: No inguinal hernias are seen. Bones: No aggressive osseous abnormality. Chronic appearing mild anterior wedge compression deformity at T11 level is seen with up to 20 percent loss of T11 vertebral body height anteriorly. Chronic appearing mild superior endplate anterior wedge compression deformity at T12 level is also seen with up to 10 percent loss of T12 vertebral body height. IMPRESSION: 1. No bowel obstruction or abnormal bowel wall thickening. Normal appendix. No free fluid or free air. 2. No renal stones or hydronephrosis. 3. Splenomegaly, with a possible tiny cyst in posterior spleen too small to characterize. Moderate to severe hepatic steatosis. No discrete solid appearing hepatic lesion. 4. Chronic appearing mild anterior wedge compression deformities at T11 and T12 levels as above. Dictated by: Kevin Ramachandran M.D. on 06/10/2024 at 8:06 MDM Narrative Medical decision making narrative: 23-year-old male with multiple episodes nausea and vomiting, crampy abdominal pain, afebrile, SIRS screen negative. White blood cell count 73843 noted, lactate added, IV fluid bolus initiated. Labs including stool studies requested. Patient with leukocytosis and abdominal discomfort, CT abdomen and pelvis ordered, patient agreeable to this plan. 0715, CT pending still to be performed, signed out to Dr. Troy. 0700 Dr. Troy patient signed out to me by Dr. Mills I have seen evaluated patient. Multiple episodes nausea vomiting diarrhea. Blood work reviewed leukocytosis of 23.4 Electrolytes stable but bicarb at 19 creatinine 0.88 Bilirubin 1.5 AST 42 ALT [address] does not show any cause of abdominal pain no bowel obstruction or acute abnormality Patient tolerating p.o. fluids. Discussion about oral rehydration techniques with Zofran at home I suspect leukocytosis is secondary to vomiting. Both he and his have similar symptoms. No recent antibiotics. He has not had a bowel movement here in the ED. Discharge Plan Departure Patient Disposition: Home Clinical Impression: Gastroenteritis Instructions: DI for Viral Gastroenteritis -- Adult Activity Restrictions/Additional Instructions: *You have been diagnosed with gastroenteritis *What to do: At this time increase fluids recommend Gatorade liquid IV Pedialyte etc. *Continue to take medications as directed Zofran 4 mg every 8 hours if needed for nausea or vomiting *Follow up with your primary care provider in 2-3 days or call [phone] *Return to ER if you should have persistent and increasing vomiting despite medication, worsening diarrhea or any new, worsening or concerning symptoms Prescriptions: New ondansetron 4 mg tablet,disintegrating 4 mg PO Q8H PRN (Reason: nausea and vomiting) Qty: 10 0RF Stand Alone Forms: Patient Portal/API/Survey
[2024-06-10] MEDS: ONDANSETRON 4 MG/2 ML INJ IV (07:05)
[2024-06-10] MEDS: SODIUM CHLORIDE 0.9% 1,000 ML 1000 ML IV (07:05)
--- NOTE | 2024-06-10 07:33 | DI.CT.S_ITS ---
PROCEDURE: CT ABDOMEN PELVIS W CON INDICATIONS: Abdominal pain, vomiting, high white count TECHNIQUE: After the administration of intravenous contrast, axial sections acquired from the lung bases to the pubic symphysis. Coronal and sagittal reformats were performed. For radiation dose reduction, the following was used: automated exposure control, adjustment of mA and/or kV according to patient size. COMPARISON: None. FINDINGS: Image quality: Diagnostic. Lower Chest: No significant findings. ABDOMEN: Liver: No solid mass. Moderate hepatic steatosis is seen. Gallbladder: No radiopaque gallstones or wall thickening. Biliary ducts: No biliary dilation. Pancreas: No ductal dilation. Spleen: There is splenomegaly. Spleen measures 15.5 cm in length. Possible small cyst is seen in posterior aspect of spleen measures 4 millimeter in size. Adrenal Glands: No adrenal nodules. Kidneys and Ureters: No hydronephrosis. No solid mass. No complex renal cystic lesion which requires follow up. Stomach and Bowel: There is no bowel obstruction. No abnormal bowel wall thickening or mesenteric fat stranding. No abscess collection. Appendix is visualized in right lower quadrant and is within normal limits. Peritoneum: No abnormal intraperitoneal fluid. No free air. Ventral Wall: No significant ventral hernia. Abdominal Nodes: No retroperitoneal or mesenteric adenopathy by size criteria. Vessels: Aorta and inferior vena cava are normal in size. PELVIS: Pelvic Organs: Unremarkable. Bladder: No bladder wall thickening, accounting for underdistention. Pelvic Nodes: No enlarged lymph nodes. Miscellaneous: No inguinal hernias are seen. Bones: No aggressive osseous abnormality. Chronic appearing mild anterior wedge compression deformity at T11 level is seen with up to 20 percent loss of T11 vertebral body height anteriorly. Chronic appearing mild superior endplate anterior wedge compression deformity at T12 level is also seen with up to 10 percent loss of T12 vertebral body height. IMPRESSION: 1. No bowel obstruction or abnormal bowel wall thickening. Normal appendix. No free fluid or free air. 2. No renal stones or hydronephrosis. 3. Splenomegaly, with a possible tiny cyst in posterior spleen too small to characterize. Moderate to severe hepatic steatosis. No discrete solid appearing hepatic lesion. 4. Chronic appearing mild anterior wedge compression deformities at T11 and T12 levels as above. Dictated by: Kevin Ramachandran M.D. on 06/10/2024 at 8:06 Approved by: Kevin Ramachandran M.D. on 06/10/2024 at 8:10
[2024-06-10 07:44] VITALS: BP 143/81; PULSE 101; RESP 18; O2SAT 98
[2024-06-10 08:05] VITALS: PULSE 93; O2SAT 96
[2024-06-10 08:13] VITALS: BP 131/77; PULSE 102; O2SAT 97
--- NOTE | 2024-06-10 08:15 | PC.NURSE ---
Pt states that he is pain and nausea free. A&Ox4.
[2024-06-10 08:34] LABS: Lipase 48 U/L (23-300)
[2024-06-10 08:45] VITALS: BP 131/77; PULSE 100; RESP 20; TEMP 37; O2SAT 98
== END 2024-06-10 08:48 | disposition home or self-care (01) ==
PROVIDERS: Emergency Medicine; Emergency Provider Emergency Medicine; Family Provider Family Medicine
DX: K52.9 Noninfective gastroenteritis and colitis, unspecified (principal)
CPT/HCPCS: 36415; 74177; 80053; 83605; 83690; 85025; 87040; 96361; 96374; 99284; J2405; Q9967